=== PATIENT | male | born 1995 | race Caucasian/White ===

== ENCOUNTER 2021-10-02 13:28 | Inpatient (IN) | payer OTHER ==
[~2021-10-02] VITALS: Ht 182.9 cm; Wt 111.4 kg
[2021-10-02 14:29] LABS: HEMATOCRIT 48.1 % (42.0-52.0); HEMOGLOBIN 15.8 g/dl (13.5-17.5); MEAN CORPUSCULAR HEMOGLOBIN 28.9 pg (27.0-33.0); MEAN CORPUSCULAR HGB CONC 32.8 g/dl (32.0-36.5); MEAN CORPUSCULAR VOLUME 88.1 fl (80.0-96.0); PLATELET COUNT, AUTOMATED 298 10^3/uL (150-450); RED BLOOD COUNT 5.46 10^6/uL (4.30-6.10); WHITE BLOOD COUNT 10.7 10^3/uL (4.0-10.0)
[2021-10-02] MEDS ORDERED: BUPR15TA PO (14:43)
[2021-10-02] MEDS ORDERED: PROZ10CA7 PO (14:43)
[2021-10-02 14:53] LABS: AMPHETAMINES LEVEL URINE NEGATIVE (NEGATIVE); BARBITURATES URINE NEGATIVE (NEGATIVE); BENZODIAZEPINES URINE NEGATIVE (NEGATIVE); CANNABINOIDS URINE NEGATIVE (NEGATIVE); COCAINE METABOLITE URINE NEGATIVE (NEGATIVE); METHADONE URINE NEGATIVE (NEGATIVE); OPIATES URINE NEGATIVE (NEGATIVE); PHENCYCLIDINE URINE NEGATIVE (NEGATIVE)
[2021-10-02 15:05] LABS: ALBUMIN 4.2 GM/DL (3.2-5.2); ALT/SGPT 66 U/L (12-78); BILIRUBIN,DIRECT 0.1 MG/DL (0.0-0.2); BILIRUBIN,TOTAL 0.3 MG/DL (0.2-1.0); BLOOD UREA NITROGEN 16 MG/DL (7-18); CALCIUM LEVEL 9.5 MG/DL (8.5-10.1); CARBON DIOXIDE LEVEL 27 MEQ/L (21-32); CHLORIDE LEVEL 108 MEQ/L (98-107); CREATININE FOR GFR 1.28 MG/DL (0.70-1.30); GLOMERULAR FILTRATION RATE > 60.0 (>60); GLUCOSE, FASTING 100 MG/DL (70-100); POTASSIUM SERUM 4.3 MEQ/L (3.5-5.1); SALICYLATE LEVEL < 1.7 MG/DL (5.0-30.0); SODIUM LEVEL 140 MEQ/L (136-145); THYROID STIMULATING HORMONE 0.748 uIU/ML (0.358-3.740); TOTAL PROTEIN 7.6 GM/DL (6.4-8.2)
[2021-10-02 15:06] LABS: ACETAMINOPHEN LEVEL < 2.0 UG/ML (10.0-30.0); ETHYL ALCOHOL (ETHANOL) < 0.003 % (0.000-0.010)
[2021-10-02 20:55] LABS: RSV AMPLIFICATION NEGATIVE (NEGATIVE)
[2021-10-02] MEDS ORDERED: FLUO1TAB3 PO (21:48)
[2021-10-02] MEDS ORDERED: HOME MED LIST COMPLETE! XX SCH (21:50)
[2021-10-03] MEDS: buPROPion **SR TABLET** (ZYBAN) 150MG PO SCH ×2 (09:10→23:21)
[2021-10-03] MEDS: FLUoxetine 20MG CAP PO SCH (09:10)
[2021-10-04] MEDS: buPROPion **SR TABLET** (ZYBAN) 150MG PO SCH ×2 (08:50→20:10)
[2021-10-04] MEDS: FLUoxetine 20MG CAP PO SCH (08:50)
[2021-10-04] MEDS: NICOTINE 21MG/24HR 1 EA TRANSDERMAL TD SCH (09:00)
[2021-10-04] MEDS ORDERED: traZODone 50 MG TAB PO PRN (13:00)
[2021-10-04] MEDS ORDERED: diphenhydrAMINE 25MG CAP PO PRN (13:00)
[2021-10-04] MEDS ORDERED: MAALOX 30 ML SUSP *UDC PO PRN (13:00)
[2021-10-04] MEDS ORDERED: MOM 30ML SUSPENSION UDC PO PRN (13:00)
[2021-10-04] MEDS ORDERED: ACETAMINOPHEN TAB 650MG DOSE (2X325MG) PO PRN (13:00)
[2021-10-05 06:25] VITALS: BP 149/97
[2021-10-05] MEDS: NICOTINE 21MG/24HR 1 EA TRANSDERMAL TD SCH (08:04)
[2021-10-05] MEDS: FLUoxetine 20MG CAP PO SCH (08:04)
[2021-10-05] MEDS: buPROPion **SR TABLET** (ZYBAN) 150MG PO SCH ×2 (08:04→20:17)
[2021-10-05 17:31] VITALS: BP 150/78
[2021-10-06 06:50] VITALS: BP 138/72
[2021-10-06] MEDS: FLUoxetine 20MG CAP PO SCH (08:11)
[2021-10-06] MEDS: buPROPion **SR TABLET** (ZYBAN) 150MG PO SCH (08:11)
[2021-10-06] MEDS: NICOTINE 21MG/24HR 1 EA TRANSDERMAL TD SCH (08:12)
[2021-10-06] MEDS ORDERED: NICO21PAT TD (08:59)
[2021-10-06] MEDS ORDERED: BUPR15TA PO (08:59)
[2021-10-06] MEDS ORDERED: FLUO1TAB3 PO (08:59)
[2021-10-06] MEDS ORDERED: TRAZ-252 PO (08:59)
== END 2021-10-06 12:45 | disposition home or self-care (01) | DRG 880 ==
LOC: M ED 13:28 → M ED INP 10-04 12:58 → M PSY 10-04 14:21
PROVIDERS: ADMIT Psychiatry & Neurology Psychiatry; ATTEND Student in an Organized Health Care Education/Training Program
DX: F41.1 Generalized anxiety disorder (principal); R45.851 Suicidal ideations; F32.89 Other specified depressive episodes; F17.210 Nicotine dependence, cigarettes, uncomplicated; Z91.14 Patient's other noncompliance with medication regimen; Z63.5 Disruption of family by separation and divorce; Z20.822 Contact with and (suspected) exposure to COVID-19; Z79.899 Other long term (current) drug therapy; Z88.1 Allergy status to other antibiotic agents; Z88.8 Allergy status to other drugs, medicaments and biological substances